=== PATIENT | male | born 1935 | race Caucasian/White ===

== ENCOUNTER → 2018-02-18 | Outpatient (CLI) | payer OTHER ==
[~2018-02-18] MED LIST: ANBESOL MT; ASPI81CH PO; Aspir 8181 MG PO; Balanced B-1001 EACH PO; CEPH500 PO; CIPR500 PO; CIPRO500 MG PO; Cipro500 MG PO; DIPATR; DIPATR PO; DOXY100 PO; EXELON1 EACH TD; FINA5 PO; Ferosul325 MG PO; GUAI600T33; GUAI600T33 PO; HYDR1TAB94 PO; HYDRO EYES PO; KETO15TC TOP; KETONE; LEVO750 PO; METO10 PO; METO25ER PO; NYST100TC TOP; ONDA4ODT MM; ONDA4ODT PO; OXYB5ER PO; PANT40 PO; PROBIOTIC1 EAC1 PO; PROCTOCREAM TOP; PSYL5.85P; PSYL5.85P PO; Pyridium100 MG PO; TAMS.4ER; TAMS.4ER PO; [UNRECOGNIZED DRUG - CODE] TOP
== END | disposition home or self-care (01) ==
LOC: LAB SHORT 13:24 → LAB EV 13:24
DX: L08.9 Local infection of the skin and subcutaneous tissue, unspecified (principal)
CPT/HCPCS: 87070; 87205

== ENCOUNTER 2018-11-16 10:54 | Emergency (ER) | payer OTHER ==
[~2018-11-16] VITALS: Ht 170.2 cm; Wt 63.5 kg
[~2018-11-16 10:54] MED LIST changes: +Levaquin750 MG PO; -ONDA4ODT MM; +Prinivil10 MG PO
[2018-11-16 11:50] LABS: Source, Urine Catheter
[2018-11-16 11:59] LABS: BASOPHILS ABSOLUTE AUTO 0.04 K/mm3 (0.00-0.23); BASOPHILS PERCENT AUTO 1 % (0-2); EOSINOPHILS ABSOLUTE AUTO 0.25 K/mm3 (0.00-0.68); EOSINOPHILS PERCENT AUTO 4 % (0-6); Hematocrit 40.6 % (37.0-53.0); Hemoglobin 13.5 g/dL (13.5-17.5); IMMATURE GRAN ABSOLUTE AUTO 0.04 K/mm3 (0.00-0.10); IMMATURE GRAN PERCENT AUTO 1 % (0-1); LYMPHOCYTES ABSOLUTE AUTO 1.09 K/mm3 (0.84-5.20); LYMPHOCYTES PERCENT AUTO 19 % (21-46); MONOCYTES ABSOLUTE AUTO 0.43 K/mm3 (0.16-1.47); MONOCYTES PERCENT AUTO 8 % (4-13); Mean Corpuscular HGB 32.3 pg (26.0-34.0); Mean Corpuscular HGB Conc 33.3 g/dL (31.5-36.5); Mean Corpuscular Volume 97 fL (80-100); Mean Platelet Volume 8.9 fL (9.1-12.4); NEUTROPHILS ABSOLUTE AUTO 3.92 K/mm3 (1.96-9.15); NEUTROPHILS PERCENT AUTO 68 % (41-73); Platelet Count 206 K/mm3 (150-400); RDW Coefficient Variation 12.6 % (11.7-14.2); RDW Standard Deviation 45.1 fL (35.1-46.3); Red Blood Cell Count 4.18 M/mm3 (4.30-5.90); White Blood Cell Count 5.77 K/mm3 (4.00-11.30)
[2018-11-16 12:02] LABS: Bilirubin, Urine Neg (Neg); Blood, Urine 5+ (Neg); Glucose Qualitative, Urine Neg (Neg); Ketones, Urine Neg (Neg); Leukocyte Esterase, Urine 3+ (Neg); Nitrite, Urine Neg (Neg); Protein, Urine 3+ (Neg); Urobilinogen, Urine NORM (Normal); pH, Urine 6.5 (5.0-8.0)
[2018-11-16 12:06] LABS: Anion Gap 6 mmol/L (6-16); Blood Urea Nitrogen 9 mg/dL (8-24); Bun/Creatinine Ratio 13.2 (12.0-20.0); CO2, Blood 26 mmol/L (21-32); Calcium, Blood 8.2 mg/dL (8.5-10.1); Chloride, Blood 107 mmol/L (98-108); Creatinine, Blood 0.68 mg/dL (0.60-1.20); Glomerular Filtration Rate >60 (60-); Glucose, Blood 75 mg/dL (70-99); Potassium, Blood 3.9 mmol/L (3.5-5.5); Sodium, Blood 139 mmol/L (136-145)
[2018-11-16 12:21] LABS: Appearance, Urine Turbid (Clear); Color, Urine Red (P-Yellow)
[2018-11-16 12:22] LABS: Bacteria Few /hpf; Red Blood Cells, Urine TNTC /hpf (0-2); Squamous Epithelial Cells Not Seen /hpf (Few)
== END 2018-11-16 13:50 | disposition home or self-care (01) ==
LOC: ER 10:54
PROVIDERS: Physician Assistant
DX: R31.9 Hematuria, unspecified (principal); Z79.899 Other long term (current) drug therapy; Z79.82 Long term (current) use of aspirin
CPT/HCPCS: 36415; 80048; 81001; 85025; 87077; 87086; 87147; 87186; 99283

== ENCOUNTER 2018-11-20 16:11 | Emergency (ER) | payer OTHER ==
[~2018-11-20] VITALS: Ht 175.3 cm; Wt 54.4 kg
[2018-11-20 17:25] LABS: Source, Urine Clean Catch
[2018-11-20 17:28] LABS: BASOPHILS ABSOLUTE AUTO 0.04 K/mm3 (0.00-0.23); BASOPHILS PERCENT AUTO 1 % (0-2); EOSINOPHILS PERCENT AUTO 4 % (0-6); Hematocrit 35.6 % (37.0-53.0); Hemoglobin 11.8 g/dL (13.5-17.5); IMMATURE GRAN ABSOLUTE AUTO 0.05 K/mm3 (0.00-0.10); IMMATURE GRAN PERCENT AUTO 1 % (0-1); LYMPHOCYTES ABSOLUTE AUTO 1.07 K/mm3 (0.84-5.20); LYMPHOCYTES PERCENT AUTO 14 % (21-46); MONOCYTES PERCENT AUTO 8 % (4-13); Mean Corpuscular HGB 32.8 pg (26.0-34.0); Mean Corpuscular HGB Conc 33.1 g/dL (31.5-36.5); Mean Corpuscular Volume 99 fL (80-100); Mean Platelet Volume 8.9 fL (9.1-12.4); NEUTROPHILS ABSOLUTE AUTO 5.71 K/mm3 (1.96-9.15); NEUTROPHILS PERCENT AUTO 74 % (41-73); Platelet Count 211 K/mm3 (150-400); RDW Coefficient Variation 12.7 % (11.7-14.2); RDW Standard Deviation 45.4 fL (35.1-46.3); White Blood Cell Count 7.77 K/mm3 (4.00-11.30)
[2018-11-20 17:32] LABS: Appearance, Urine Bloody (Clear); Bilirubin, Urine Neg (Neg); Blood, Urine 5+ (Neg); Color, Urine Red (P-Yellow); Glucose Qualitative, Urine Neg (Neg); Ketones, Urine Neg (Neg); Leukocyte Esterase, Urine Neg (Neg); Nitrite, Urine Neg (Neg); Protein, Urine 4+ (Neg); Specific Gravity, Urine 1.015 (1.003-1.022); Urobilinogen, Urine NORM (Normal); pH, Urine 6.5 (5.0-8.0)
[2018-11-20 17:39] LABS: Anion Gap 7 mmol/L (6-16); Blood Urea Nitrogen 11 mg/dL (8-24); Bun/Creatinine Ratio 15.9 (12.0-20.0); CO2, Blood 22 mmol/L (21-32); Calcium, Blood 8.3 mg/dL (8.5-10.1); Chloride, Blood 104 mmol/L (98-108); Creatinine, Blood 0.69 mg/dL (0.60-1.20); Glomerular Filtration Rate >60 (60-); Glucose, Blood 82 mg/dL (70-99); Sodium, Blood 133 mmol/L (136-145)
[2018-11-20 17:41] LABS: Red Blood Cells, Urine TNTC /hpf (0-2)
[2018-11-20 17:42] LABS: Bacteria Rare /hpf; Squamous Epithelial Cells Rare /hpf (Few)
[2018-11-21] MEDS ORDERED: HYDCOR2.5C (08:57)
[2018-11-21] MEDS ORDERED: MUPI1NAS (08:58)
[2018-11-21] MEDS ORDERED: Bactrim Ds Tab1 EACH PO (11:45)
== END 2018-11-20 19:31 | disposition home or self-care (01) ==
LOC: ER 16:11
PROVIDERS: Emergency Medicine
DX: R31.9 Hematuria, unspecified (principal); Z79.899 Other long term (current) drug therapy; Z79.82 Long term (current) use of aspirin
CPT/HCPCS: 36415; 80048; 81001; 85025; 99283

== ENCOUNTER 2018-11-21 08:36 | Emergency (ER) | payer OTHER ==
[~2018-11-21] VITALS: Ht 170.2 cm; Wt 63.5 kg
[2018-11-21] MEDS ORDERED: HYDCOR2.5C (08:57)
[2018-11-21] MEDS ORDERED: MUPI1NAS (08:58)
[2018-11-21] MEDS ORDERED: Bactrim Ds Tab1 EACH PO (11:45)
== END 2018-11-21 12:30 | disposition home or self-care (01) ==
LOC: ER 08:36
DX: T83.091A Other mechanical complication of indwelling urethral catheter, initial encounter (principal); R31.9 Hematuria, unspecified; R33.9 Retention of urine, unspecified; Z79.899 Other long term (current) drug therapy; Z79.82 Long term (current) use of aspirin
CPT/HCPCS: 51700; 99283-25

== ENCOUNTER 2018-12-01 17:08 | Inpatient (IN) | payer OTHER ==
[~2018-12-01] VITALS: Ht 165.1 cm; Wt 55.4 kg
[~2018-12-01 17:08] MED LIST changes: +Bactrim Ds Tab1 EACH PO; +HYDCOR2.5C; +MUPI1NAS
[2018-12-01 18:11] LABS: BASOPHILS ABSOLUTE AUTO 0.06 K/mm3 (0.00-0.23); BASOPHILS PERCENT AUTO 0 % (0-2); EOSINOPHILS ABSOLUTE AUTO 0.17 K/mm3 (0.00-0.68); EOSINOPHILS PERCENT AUTO 1 % (0-6); Hematocrit 36.7 % (37.0-53.0); Hemoglobin 12.2 g/dL (13.5-17.5); IMMATURE GRAN ABSOLUTE AUTO 0.29 K/mm3 (0.00-0.10); IMMATURE GRAN PERCENT AUTO 2 % (0-1); LYMPHOCYTES ABSOLUTE AUTO 0.78 K/mm3 (0.84-5.20); LYMPHOCYTES PERCENT AUTO 5 % (21-46); MONOCYTES ABSOLUTE AUTO 0.96 K/mm3 (0.16-1.47); MONOCYTES PERCENT AUTO 6 % (4-13); Mean Corpuscular HGB 32.1 pg (26.0-34.0); Mean Corpuscular HGB Conc 33.2 g/dL (31.5-36.5); Mean Corpuscular Volume 97 fL (80-100); Mean Platelet Volume 8.3 fL (9.1-12.4); NEUTROPHILS ABSOLUTE AUTO 15.21 K/mm3 (1.96-9.15); NEUTROPHILS PERCENT AUTO 87 % (41-73); Platelet Count 317 K/mm3 (150-400); RDW Coefficient Variation 12.8 % (11.7-14.2); RDW Standard Deviation 44.8 fL (35.1-46.3); White Blood Cell Count 17.47 K/mm3 (4.00-11.30)
[2018-12-01 18:28] LABS: Alanine Aminotransfer (ALT/SGP 18 U/L (12-78); Albumin, Blood 3.5 g/dL (3.4-5.0); Albumin/Globulin Ratio 0.8 (0.8-1.8); Alk Phos 121 U/L (50-136); Anion Gap 9 mmol/L (6-16); Aspartate Aminotrans (AST/SGOT 22 U/L (12-37); Bilirubin, Total 0.6 mg/dL (0.1-1.0); Blood Urea Nitrogen 17 mg/dL (8-24); Bun/Creatinine Ratio 15.9 (12.0-20.0); CO2, Blood 20 mmol/L (21-32); Calcium, Blood 8.6 mg/dL (8.5-10.1); Chloride, Blood 98 mmol/L (98-108); Creatinine, Blood 1.07 mg/dL (0.60-1.20); Globulin, Blood 4.6 g/dL (2.2-4.0); Glomerular Filtration Rate >60 (60-); Glucose, Blood 149 mg/dL (70-99); Potassium, Blood 4.4 mmol/L (3.5-5.5); Sodium, Blood 127 mmol/L (136-145); Total Protein, Blood 8.1 g/dL (6.4-8.2)
[2018-12-01] MEDS ORDERED: Bactrim Ds Tab1 EACH PO (18:50)
[2018-12-01] MEDS ORDERED: DOCU100 PO (18:50)
[2018-12-01] MEDS ORDERED: NITR100CA PO (18:50)
[2018-12-01] MEDS ORDERED: Zinc Oxide56.7 GM TOP (18:53)
[2018-12-01 19:07] LABS: Source, Urine Clean Catch
[2018-12-01 19:23] LABS: Appearance, Urine Bloody (Clear); Bilirubin, Urine Neg (Neg); Blood, Urine 5+ (Neg); Color, Urine Red (P-Yellow); Glucose Qualitative, Urine Neg (Neg); Ketones, Urine 1+ (Neg); Leukocyte Esterase, Urine 2+ (Neg); Nitrite, Urine Neg (Neg); Protein, Urine 4+ (Neg); Specific Gravity, Urine 1.015 (1.003-1.022); Urobilinogen, Urine NORM (Normal)
[2018-12-01 19:29] LABS: Red Blood Cells, Urine TNTC /hpf (0-2); White Blood Cells, Urine 0-2 /hpf (0-5)
[2018-12-01 19:30] LABS: Bacteria Few /hpf; Squamous Epithelial Cells Not Seen /hpf (Few)
[2018-12-01 19:38] LABS: Influenza A Positive (NEGATIVE); Influenza B Negative (NEGATIVE)
--- NOTE | 2018-12-02 03:21 | NUR ---
PT ARRIVAL... PT ARRIVED ON UNIT AT 0140 VIA GURNEY. PT HAS CEREBRAL PALSEY AND WAS MOVED FROM THE GURNEY TO THE BED BY STAFF AND A SLIDER SHEET. PT WAS ADMITTED DUE TO NEAR SYNCOPE/HYPOTENSION, BLOOD IN HIS SUPRAPUBIC CATH AND FLU A POSITIVE, WHICH HE IS IN DROPLET ISOLATION FOR. PT WAS GIVEN SEVRAL FLUID BOLUSES AND TAMIFLU IN THE ED PRIOR TO ARRIVAL. PT HAS HAD SEVERAL BOUTS OF DIARRHEA SINCE ARRIVAL TO THIS FACILITY. PT WAS CLEARED FOR C-DIFF BY LAB. PT'S SUPRAPUBIC CATH IS DRAINING DARK RED/BLOODY URINE TO GRAVITY, NO CLOTS HAVE BEEN NOTED, BUT IT IS NOTED THAT THE CONSISTENCY IS SLIGHTLY THICKER THAN NORMAL URINE. PT STATES THAT THIS HAPPENS "SOMETIMES AFTER THEY CHANGE IT." PT'S H&H ARE STABLE AT THIS TIME(SEE LABS). TELE PLACED, SR W/FIRST DEGREE IN THE 60'S PER VIDEO GAME PROGRAMMER. PT'S BP 118/50. NO EDEMA NOTED ON ASSESSMENT. PT'S L/S CLEAR T/O WITH OCC NONPRODUCTIVE, BUT CONGESTED COUGH RR EVEN AND UNLABORED. PT IS ON RA WITH STATS >90%. BT PRESENT AND HYPERACTIVE, ABD IS SOFT AND NONTENDER TO PALP. PT'S SCROTAL AREA IS RED AND PAINFUL DUE TO PT'S INCONT EPISODES OF DIARRHEA, MEPILEX WAS PLACED ON THE PT'S SACRUM TO PREVENT PURESSURE ULCER FORMATION. PT WAS ORIENTED TO THE ROOM/UNIT AND SHOWN HOW TO USE THE CALL LIGHT, CALL LIGHT IN REACH, BED IS LOCKED AND LOW, WILL CONTINUE TO MONITOR.
[2018-12-02 04:55] LABS: Hematocrit 26.8 % (37.0-53.0); Mean Corpuscular HGB 31.9 pg (26.0-34.0); Mean Corpuscular HGB Conc 33.6 g/dL (31.5-36.5); Mean Corpuscular Volume 95 fL (80-100); Mean Platelet Volume 8.3 fL (9.1-12.4); Platelet Count 218 K/mm3 (150-400); RDW Coefficient Variation 12.7 % (11.7-14.2); RDW Standard Deviation 44.4 fL (35.1-46.3); Red Blood Cell Count 2.82 M/mm3 (4.30-5.90); White Blood Cell Count 9.22 K/mm3 (4.00-11.30)
[2018-12-02 05:30] LABS: Anion Gap 7 mmol/L (6-16); Blood Urea Nitrogen 16 mg/dL (8-24); CO2, Blood 20 mmol/L (21-32); Calcium, Blood 7.6 mg/dL (8.5-10.1); Chloride, Blood 110 mmol/L (98-108); Glomerular Filtration Rate >60 (60-); Glucose, Blood 110 mg/dL (70-99); Potassium, Blood 4.4 mmol/L (3.5-5.5)
[2018-12-02 06:13] LABS: Sodium, Blood 137 mmol/L (136-145)
--- NOTE | 2018-12-02 06:44 | NUR ---
SHIFT SUMMARY. NO ACUTE CHANGES NOTED THIS SHFIT. PT'S SALINAS IS STILL DRAINING DARK RED BLOODY URINE. PT'S H&H HAS TRENDED DOWN SLIGHTLY FROM ADMIT (SEE LABS). PT DENIES ANY CHEST PAIN/PRESSURE, N/V OR SOB. PT'S VS HAVE BEEN STABLE SINCE ADMIT WITH NO EVENTS ON TELE. CALL LIGHT IN REACH, BED IS LOCKED AND LOW, WILL CONTINUE TO MONITOR UNTIL REPORT IS GIVEN TO ONCOMING RN.
--- NOTE | 2018-12-02 12:47 | NUR ---
I HAVE IRRIGATED HIS SP CATHETER MANUALLY WITH SRTERILE WATER. MANY SMALL CLOTS REMOVED AND URINE DRAINING WELL. THIS WAS AFTER A BLADDER SCAN WAS DONE AND IRRIGATION ORDER RECEIVED FROM .
--- NOTE | 2018-12-02 16:25 | NUR ---
HE HAS BEEN TURNED Q2 TO 3 HRS TODAY. GROSS HEMATURIA ONGOING. COLOR IS BURGANDY WITH SMALL CLOTS. WILL IRRIGATE HIS BLADDER THROUGH THE SP CATHETER NEEDED TO DRAIN. HE IS COMFORTABLE. LEGS ARE RESTLESS. FOAM PATCH PUT ON L HIP TODAY TO COVER SLIGHT SHEARED AREA QUARTER SIZE. SMALL AMT OF BLOODY DRAINAGE AT SP EXIT SITE. HE TELLS [facility] AND [facility] FROM [facility] HE IS NOT SURE IF HE WANTS TO MOVE TO [place] OR NOT. DROPLET ISOLATION ONGOING.
--- NOTE | 2018-12-02 17:53 | NUR ---
NO COMPLAINTS. NO CHANGES. HE FEEDS HIMSELF WELL. HIS COUGH IS WET BUT NONPRODUCTIVE. HE APPEARS FRAIL, WEAK AND LUNG SICK. DROPLET ISOLATION ONGOING.
--- NOTE | 2018-12-02 22:05 | NUR ---
ASSUMED CARE OF PATIENT AT APPROXIMATELY 1910 FROM [facility] RN. PATIENT ALERT TO SELF AND ; SLOW TO REPSOND; HARD OF HEARING. PATIENT DENIES PAIN AND NAUSEA. REPORTS N/T IN LEGS; LEGS CONTRACTED; PILLOW PLACED IN BETWEEN TURNED Q2 HOURS. SUPRAPUBIC CATH DRAINING DARK RED URINE; REPORTED FROM [facility]SHIFT THAT SITE OOZES SCANT AMOUNTS OF BLOOD. HARSE COUGH NOTED; MEDICATED PER EMAR. SR W/ 1 DEGREE BLOCK ON TELE; OYXGEN SATURATION ABOVE 90% ON ROOM AIR. IVF INFUSING PER ORDER. DROPLET ISOLATION FOR INFLUENZA. PATIENT REPORTS HE IS MOVING TO [place]; DAUGHTER IS POA AND LIVES IN [place]; 2X SONS ALSO LIVE OUT OF STATE. PATIENT CURRENTLY RESTING IN BED; CALL LIGHT IN REACH; BED IN LOWEST POSISTION; WILL CONTINUE TO MONITOR AND ASSESS UNTIL END OF SHIFT.
[2018-12-03 06:01] LABS: BASOPHILS ABSOLUTE AUTO 0.02 K/mm3 (0.00-0.23); BASOPHILS PERCENT AUTO 0 % (0-2); EOSINOPHILS ABSOLUTE AUTO 0.31 K/mm3 (0.00-0.68); EOSINOPHILS PERCENT AUTO 6 % (0-6); Hematocrit 24.9 % (37.0-53.0); Hemoglobin 8.3 g/dL (13.5-17.5); IMMATURE GRAN ABSOLUTE AUTO 0.06 K/mm3 (0.00-0.10); IMMATURE GRAN PERCENT AUTO 1 % (0-1); LYMPHOCYTES ABSOLUTE AUTO 0.85 K/mm3 (0.84-5.20); LYMPHOCYTES PERCENT AUTO 17 % (21-46); MONOCYTES ABSOLUTE AUTO 0.57 K/mm3 (0.16-1.47); MONOCYTES PERCENT AUTO 11 % (4-13); Mean Corpuscular HGB 31.7 pg (26.0-34.0); Mean Corpuscular HGB Conc 33.3 g/dL (31.5-36.5); Mean Corpuscular Volume 95 fL (80-100); Mean Platelet Volume 8.4 fL (9.1-12.4); NEUTROPHILS ABSOLUTE AUTO 3.31 K/mm3 (1.96-9.15); NEUTROPHILS PERCENT AUTO 65 % (41-73); Platelet Count 245 K/mm3 (150-400); RDW Coefficient Variation 12.7 % (11.7-14.2); RDW Standard Deviation 44.2 fL (35.1-46.3); Red Blood Cell Count 2.62 M/mm3 (4.30-5.90); White Blood Cell Count 5.12 K/mm3 (4.00-11.30)
[2018-12-03 07:02] LABS: Anion Gap 9 mmol/L (6-16); Blood Urea Nitrogen 11 mg/dL (8-24); Bun/Creatinine Ratio 17.6 (12.0-20.0); CO2, Blood 20 mmol/L (21-32); Calcium, Blood 7.9 mg/dL (8.5-10.1); Chloride, Blood 111 mmol/L (98-108); Creatinine, Blood 0.63 mg/dL (0.60-1.20); Glomerular Filtration Rate >60 (60-); Glucose, Blood 87 mg/dL (70-99); Sodium, Blood 140 mmol/L (136-145)
--- NOTE | 2018-12-03 14:34 | NUR ---
PCU TRANFER TO RM 333. ARRIVE APPROX 1400. A/O X4, STATE NO DISCOMFORT.
--- NOTE | 2018-12-03 19:36 | NUR ---
PCU 15 TRANSFER THIS AFTERNOON. HE IS A/O X3, STATE NO PAIN/DISCOMFORT. DROPLET ISOLATION D/T +FLU. HE STATE FEELING IMPROVED, OCCASIONAL COUGH. DR BRYANT STATE HAD PLANNED TO D/C HIM TODAY TO [facility] [place] WHERE HE WOULD BE CLOSER TO FAMILY & UROLOGIST. PT HAS ONGOING HEMATURIA. URINE IS DRK CRANBERRY COLORED W/O CLOTS @ THIS TIME DRNG VIA SUPRAPUBIC CATH. HX PROSTATE CA & TURP. H&H 8.3/24.9, DR BRYANT IS MONITIORING & WILL CHECK H&H IN AM. PT HAS HX CEREBRAL PALSY W NO VOLUNTARY MOVEMENT OF BLE, REQUIRE ASSIST TO TURN & REPOSITION APPROX Q2. HAVE HAD LONG CONVERSATIONS WITH PT OUT OF STATE DAUGHTER & HER CURRENT [facility] CARE[facility]. UNABLE TO ANSWER ALL QUESTIONS TO THEIR SATISFACTION. HAVE REFERED THEM TO DR BRYANT & EDUIN D/C SAT TUTOR JULIANNE JARAMILLO R/T D/C & RELOCATION TO [facility].
[2018-12-04 05:30] LABS: BASOPHILS ABSOLUTE AUTO 0.03 K/mm3 (0.00-0.23); BASOPHILS PERCENT AUTO 1 % (0-2); EOSINOPHILS ABSOLUTE AUTO 0.41 K/mm3 (0.00-0.68); EOSINOPHILS PERCENT AUTO 8 % (0-6); Hematocrit 24.9 % (37.0-53.0); Hemoglobin 8.2 g/dL (13.5-17.5); IMMATURE GRAN ABSOLUTE AUTO 0.05 K/mm3 (0.00-0.10); IMMATURE GRAN PERCENT AUTO 1 % (0-1); LYMPHOCYTES ABSOLUTE AUTO 1.08 K/mm3 (0.84-5.20); LYMPHOCYTES PERCENT AUTO 21 % (21-46); MONOCYTES PERCENT AUTO 10 % (4-13); Mean Corpuscular HGB 31.9 pg (26.0-34.0); Mean Corpuscular HGB Conc 32.9 g/dL (31.5-36.5); Mean Corpuscular Volume 97 fL (80-100); Mean Platelet Volume 8.2 fL (9.1-12.4); NEUTROPHILS PERCENT AUTO 61 % (41-73); Platelet Count 248 K/mm3 (150-400); RDW Coefficient Variation 12.5 % (11.7-14.2); RDW Standard Deviation 43.8 fL (35.1-46.3); Red Blood Cell Count 2.57 M/mm3 (4.30-5.90); White Blood Cell Count 5.27 K/mm3 (4.00-11.30)
--- NOTE | 2018-12-04 05:44 | NUR ---
SHIFT SUMMARY PT IS AN 83 Y/O MALE, ADMITTED FOR SEVERE SEPSIS.HE HAS A SUPRAPUBIC CATHETER, AND HIS URINE HAS BEEN DARK BURGUNDY/RED WITH VISIBLE CLOTS. THE CATHETER HAS FLOWED WELL DURING THE NIGHT WITHOUT PLUGGING. PT HAS DENIED ANY COMPLAINTS OF PAIN, NAUSEA OR SOB. VITAL SIGNS REMAINED STABLE. AT THE BEGINNING OF THE SHIFT, THE PT'S CAREGIVER FROM [facility] STOPPED BY. SHE WANTED TO KNOW ABOUT THE PATIENT'S CATHETER, AND HIS HG AND HCT LEVELS. SHE WAS INFORMED THAT LABS WOULD BE RECHECKED IN THE AM. SHE ALSO REQUESTED TO SPEAK TO HIS DOCTOR BEFORE THE FACILITY WOULD TAKE THE PT BACK. ON AM VITALS, THE PT'S HG WAS AT 8.2 FROM PREV OF 8.3, AND HCT WAS THE SAME AT 24.9. NO OTHER ACUTE CHANGES IN PT CONDITION NOTED DURING THE NIGHT. WILL CONTINUE TO MONITOR AND TREAT PER EMAR.
[2018-12-04 06:00] LABS: Anion Gap 7 mmol/L (6-16); Blood Urea Nitrogen 13 mg/dL (8-24); Bun/Creatinine Ratio 21.5 (12.0-20.0); CO2, Blood 24 mmol/L (21-32); Chloride, Blood 107 mmol/L (98-108); Glomerular Filtration Rate >60 (60-); Glucose, Blood 89 mg/dL (70-99); Sodium, Blood 138 mmol/L (136-145)
--- NOTE | 2018-12-04 09:38 | NUR ---
[facility] UPDATED DIEGO FROM [facility] CALLED ABOUT PT CONDITION. DIEGO IS CONCERNED ABOUT PT'S BLOOD IN URINE AND WANTS TO SPEAK WITH DR. GRAHAM BEFORE PT IS TO BE ACCEPTED BACK. DR. GRAHAM AWARE.
--- NOTE | 2018-12-04 10:25 | NUR ---
BLADDER IRRIGATION CLARIFICATION SPOKE WITH DR. GRAHAM ABOUT BLADDER IRRIGATION INSTRUCTIONS. AGREED THAT IRRIGATION SHOULD ONLY TAKE PLACE NEEDED. JARRED AT [facility] WAS IMFORMED OF THIS. HE STATED HE WOULD RELAY THE MESSAGE TO DIEGO AND TO HAVE HER CALL WITH ANY QUESTIONS. JARRED WAS INSTRUCTED THAT IF VISIBLE CLOTS ARE PRESENT OR IF THERE IS NO URINE OUTPUT THEN IRRIGATIONI MAY BE NEEDED.
[2018-12-04] MEDS ORDERED: Tamiflu75 MG PO (12:44)
[2018-12-04] MEDS ORDERED: ROBITUSSIN COU237 ML PO (12:46)
--- NOTE | 2018-12-04 13:11 | NUR ---
PT DISCHARGED PT DISCHARGED AT 1311. PT CATHETER IRRIGATED BEFORE DC. BLOOD CLOTS REMOVED IN THIS PROCESS. PT IN STABLE CONDITION WITH VSS. [facility]. DIEGO AT [facility] CALLED & UPDATED ON THE PT DEPARTURE. MEDS FAXED TO [facility]. AND HARD SCRIPT SENT WITH PT. NO OTHER CHANGES IN ASSESSMENT PRIOR TO DC. IV REMOVED & INTACT. PT STATED HE UNDERSTOOD DC INFORMATION & HAD NO FURTHER QUESTIONS.
== END 2018-12-04 13:19 | disposition home or self-care (01) | DRG 872 ==
LOC: ER 17:08 → ERHOLD 21:27 → PCU 21:27 → MEDS 12-03 13:35
PROVIDERS: Emergency Medicine; Family Medicine; Nurse Practitioner Acute Care; ADMIT Hospitalist
DX: A41.89 Other specified sepsis (principal); E87.1 Hypo-osmolality and hyponatremia; G82.20 Paraplegia, unspecified; G91.2 (Idiopathic) normal pressure hydrocephalus; F03.90 Unspecified dementia, unspecified severity, without behavioral disturbance, psychotic disturbance, mood disturbance, and anxiety; R65.20 Severe sepsis without septic shock; D50.9 Iron deficiency anemia, unspecified; F32.9 Major depressive disorder, single episode, unspecified; I25.2 Old myocardial infarction; J10.1 Influenza due to other identified influenza virus with other respiratory manifestations; Z66 Do not resuscitate; Z85.46 Personal history of malignant neoplasm of prostate; Z86.73 Personal history of transient ischemic attack (TIA), and cerebral infarction without residual deficits; R31.0 Gross hematuria; N40.1 Benign prostatic hyperplasia with lower urinary tract symptoms; H90.5 Unspecified sensorineural hearing loss; I65.29 Occlusion and stenosis of unspecified carotid artery; R06.00 Dyspnea, unspecified
CPT/HCPCS: 36415; 51798; 71046; 80048; 80053; 81001; 83605; 85025; 85027; 87040; 87086; 87493; 87804; 93005; 93010; 96360; 96361; 99285-25; J7030